=== PATIENT | male | born 1945 | race Caucasian/White ===

== ENCOUNTER 2018-05-14 13:00 | Emergency (ER) | payer OTHER ==
[2018-05-14] MEDS ORDERED: Aspirin 81 MG Tab.Chew PO ONE (13:12)
--- NOTE | 2018-05-14 13:30 | EDM.PDOC ---
ED HPI GENERAL MEDICAL PROBLEM - General Chief Complaint: Cardiovascular Problem Stated Complaint: LOW BLOOD PRESSURE,HIGH PULST Time Seen by Provider: 05/14/18 13:20 Source of Information: Reports: Patient History Limitations: Reports: No Limitations - History of Present Illness INITIAL COMMENTS - FREE TEXT/NARRATIVE: This 72 yo male patient reports to the ED due to dizziness, rapid heart rate, and low blood pressure. The patient reports when he finished with cardiac rehab , the patient reports feeling a little light headed. The patient reports he was also having some difficulties with his vision becoming blurry. The patient reports he fell to his right elbow prior to coming to the ED. The patient also reports intermittens "sharp" shots of pain through his chest. Onset: Today Duration: Constant Location: Reports: Upper Extremity, Right Quality: Reports: Other Severity: Moderate Improves with: Reports: None Worsens with: Reports: None Associated Symptoms: Reports: No Other Symptoms Bilateral Chest Pain Score (Numeric/FACES): 4 - Related Data Allergies Allergy/AdvReac Type Severity Reaction Status Date / Time lisinopril Allergy Cannot Verified 05/14/18 13:21 Remember Home Meds: Home Meds Ascorbic Acid 500 mg PO DAILY 01/17/17 [History] Erythromycin Base [Erythromycin 0.5% Ophth Oint] 1 applic EYEBOTH BEDTIME [History] Fish Oil/[place]-3 Fatty Acids [Fish Oil 1,000 MG] 2,000 gm PO DAILY 01/17/17 [ History] Furosemide 80 mg PO BID 01/17/17 [History] Gabapentin [Neurontin] 300 mg PO DAILY 01/17/17 [History] Gabapentin [Neurontin] 600 mg PO BID 01/17/17 [History] Losartan [Cozaar] 100 mg PO DAILY 01/17/17 [History] Multivitamin with Minerals [Multiple Vitamin] 1 tab PO DAILY 01/17/17 [History] NIFEdipine [Nifedipine ER] 90 mg PO DAILY 01/17/17 [History] Nitroglycerin 2.5 mg PO BID 01/17/17 [History] Simvastatin [Zocor] 40 mg PO BEDTIME 01/17/17 [History] Vitamin B Complex 1 cap PO DAILY 01/17/17 [History] Carboxymethylcellulose Sodium [Refresh Tears 0.5%] 2 drop EYEBOTH QID PRN [History] Insulin Glarg,Human.Rec.Analog [Lantus] 64 units INJECT DAILY 12/11/17 [History] Magnesium Oxide 420 mg PO BID 12/11/17 [History] glipiZIDE [Glipizide ER] 5 mg PO BIDMEALS 12/11/17 [History] Clopidogrel [Plavix] 75 mg PO DAILY 01/30/18 [History] Doxazosin Mesylate 4 mg PO BEDTIME 02/22/18 [History] metFORMIN HCl [Metformin HCl] 1,000 mg PO BID 02/22/18 [History] Fluticasone Propionate [Flonase] 2 sprays NASBOTH DAILY 03/27/18 [History] Potassium Chloride [Klor-Con M20] 20 meq PO TID 03/27/18 [History] Rivaroxaban [Xarelto] 15 mg PO DAILY 03/27/18 [History] Nitroglycerin [Nitrostat] 0.4 mg PO ASDIRECTED PRN 05/10/18 [History] Cholecalciferol (Vitamin D3) [Vitamin D3] 1,000 units PO DAILY 05/14/18 [History ] Metoprolol Succinate [Toprol XL 100mg] 100 mg PO BID 05/14/18 [History] Past Medical History Cardiovascular History: Reports: Afib, Aneurysm, Stents - Past Surgical History Cardiovascular Surgical History: Reports: Coronary Artery Stent Musculoskeletal Surgical History: Reports: Joint Replacement Other Musculoskeletal Surgeries/Procedures:: Left hip replacement.. Social & Family History - Tobacco Use Smoking Status *Q: Never Smoker - Recreational Drug Use Recreational Drug Use: No ED ROS GENERAL - Review of Systems Review Of Systems: ROS reveals no pertinent complaints other than HPI. ED EXAM, GENERAL - Physical Exam Exam: See Below Exam Limited By: No Limitations General Appearance: Alert, WD/WN, Moderate Distress Eye Exam: Bilateral Eye: EOMI, Normal Inspection, PERRL Ears: Normal External Exam, Normal Canal, Hearing Grossly Normal, Normal TMs, Other (bilateral hearing aids) Nose: Normal Inspection, Normal Mucosa, No Blood Throat/Mouth: Normal Inspection, Normal Lips, Normal Teeth, Normal Gums, Normal Oropharynx, Normal Voice, No Airway Compromise Head: Atraumatic, Normocephalic Neck: Normal Inspection, Supple, Non-Tender, Full Range of Motion Respiratory/Chest: No Respiratory Distress, Lungs Clear, Normal Breath Sounds, No Accessory Muscle Use, Chest Non-Tender Cardiovascular: No Gallop, No JVD, No Murmur, No Rub, Irregularly Irregular GI/Abdominal: Normal Bowel Sounds, Soft, Non-Tender, No Organomegaly, No Distention, No Abnormal Bruit, No Mass (Male) Exam: Deferred Rectal (Males) Exam: Deferred Back Exam: Normal Inspection, Full Range of Motion, NT Extremities: Pedal Edema Neurological: Alert, Oriented, CN II-XII Intact, Normal Cognition Psychiatric: Normal Affect, Normal Mood Skin Exam: Warm, Dry, Intact, Normal Color, No Rash Lymphatic: No Adenopathy Course - Vital Signs Last Recorded V/S: Last Vital Signs Temp Pulse 54 L 05/14/18 13:52 Resp 24 H 05/14/18 13:52 BP 85/43 L 05/14/18 13:52 Pulse Ox 96 05/14/18 13:52 - Orders/Labs/Meds Orders: Active Orders 24 hr Category Date Time Status EKG Documentation Completion [RC] URGENT Care 05/14/18 13:10 Active Labs: Laboratory Tests 05/14/18 05/14/18 05/14/18 Range/Units 13:21 13:21 13:21 WBC 7.5 (5.0-10.0) 10^3/uL RBC 4.22 L (4.6-6.2) 10^6/uL Hgb 12.2 L (14.0-18.0) g/dL Hct 37.8 L (40.0-54.0) % MCV 89.6 (80-100) fL MCH 28.9 (27.0-34.0) pg MCHC 32.3 L (33.0-35.0) g/dL Plt Count 132 L (150-450) 10^3/uL Neut % (Auto) 68.7 (42.2-75.2) % Lymph % (Auto) 19.3 L (20.5-50.1) % [place] % (Auto) 9.4 H (2-8) % Eos % (Auto) 2.3 (1.0-3.0) % Baso % (Auto) 0.3 (0.0-1.0) % PT 12.8 H (9.0-12.0) SEC INR 1.3 H (0.9-1.2) Sodium 139 (135-145) mmol/L Potassium 4.3 (3.6-5.0) mmol/L Chloride 103 (101-111) mmol/L Carbon Dioxide 23.0 (21.0-31.0) mmol/L Anion Gap 17.3 BUN 32 H (7-18) mg/dL Creatinine 1.4 H (0.6-1.3) mg/dL Est Cr Clr Drug Dosing 49.97 mL/min Estimated GFR (MDRD) 50 BUN/Creatinine Ratio 22.85 Glucose 148 H (74-105) mg/dL Calcium 8.8 (8.4-10.2) mg/dl Total Bilirubin 0.8 (0.2-1.0) mg/dL AST 33 (10-42) IU/L ALT 24 (10-60) IU/L Alkaline Phosphatase 60 (42-121) IU/L Troponin I < 0.02 (0.00-0.02) ng/ml Total Protein 6.8 (6.7-8.2) g/dl Albumin 3.8 (3.2-5.5) g/dl Globulin 3.0 Albumin/Globulin Ratio 1.27 Meds: Medications Discontinued Medications Generic Name Dose Route Start Last Admin Trade Name Freq PRN Reason Stop Dose Admin Aspirin 324 mg 05/14/18 13:12 05/14/18 13:27 Aspirin PO 05/14/18 13:13 324 mg ONETIME ONE Administration Departure - Departure Time of Disposition: 14:18 Disposition: Home, Self-Care 01 Condition: Fair Clinical Impression: Syncope, vasovagal Instructions: Near-Syncope, [id number] Forms: ED Department Discharge Care Plan Goals: The patient and family were advised of the examination, lab, EKG and x-ray results during the visit. The patient was encouraged to continue to monitor his symptoms. If the patient has any additional symptoms or concerns, the patient should either return to the emergency department or visit his primary care facility. - My Orders Last 24 Hours: My Active Orders 05/14/18 13:10 EKG Documentation Completion [RC] URGENT - Assessment/Plan Last 24 Hours: My Active Orders 05/14/18 13:10 EKG Documentation Completion [RC] URGENT
--- NOTE | 2018-05-14 13:42 | CR ---
Clinical history: 72-year-old male injured in fall. Interpretation: PA chest film confirms atheromatous calcifications arch of the aorta and disc disease/arthritis of the dorsal spine. Normal cardiac silhouette. No alveolar edema. No rib fracture, underlying lung contusion, atelectasis, pleural effusion or pneumothorax. No lung mass or hilar lymphadenopathy. No focal lobar pneumonia. CONCLUSION: No acute new cardiopulmonary abnormality since PA film 06 March 2018
[2018-05-14 13:46] LABS: ANION GAP 17.3; CHLORIDE,CL 103 mmol/L (101-111); SODIUM,NA 139 mmol/L (135-145)
--- NOTE | 2018-05-14 13:46 | CR ---
Clinical history: 72-year-old male injured in fall. Interpretation: 3 views right elbow confirm huge bone spur arising off the olecranon process, posteriorly, proximal right ulna and small bone spurs arising off the medial and lateral epicondyles distal right humerus. Homogeneous bone mineral density. No right elbow joint effusion, acute fracture or dislocation.
== END 2018-05-14 14:30 | disposition home or self-care (01) ==
LOC: DL.ED 13:00
DX: R55 Syncope and collapse (principal); I48.91 Unspecified atrial fibrillation; Z79.4 Long term (current) use of insulin; Z95.5 Presence of coronary angioplasty implant and graft; Z79.899 Other long term (current) drug therapy; Z88.8 Allergy status to other drugs, medicaments and biological substances
CPT/HCPCS: 36415; 71045; 73080; 80053; 84484; 85025; 85610; 93005; 99285; A9270

== ENCOUNTER 2018-07-03 12:50 | Emergency (ER) | payer OTHER ==
--- NOTE | 2018-07-03 13:32 | EDM.PDOC ---
ED HPI GENERAL MEDICAL PROBLEM - General Chief Complaint: Diabetic Complaint Stated Complaint: DIABETIC [id number] Time Seen by Provider: 07/03/18 13:15 Source of Information: Reports: Patient History Limitations: Reports: No Limitations - History of Present Illness INITIAL COMMENTS - FREE TEXT/NARRATIVE: This 72 yo male patient was brought [facility] the [facility] due to low blood sugar levels. The patient reports he had his normal toast and peanut butter for breakfast this morning and went to the [facility] for a Teleconference appointment. The patient reports that in the middle of the appointment, he started sweating, not feeling well and his blood sugar level dropped. The patient reports he had some juice from the [facility], but still was not feeling normal and was sent down to the ED for continued evaluation. The patient was eating a meal during my initial visit. The patient reports he was felling pretty normal at this time. The patient reports that he did not have any lunch today as he had been at the CT most of the morning. The patient reports no recent history of illness or injury. The patient was advised that the assessment would continue after he had a chance to eat. Onset: Today, Sudden Duration: Improving Location: Reports: Generalized Quality: Reports: Other Severity: Moderate Improves with: Reports: Eating Worsens with: Reports: None Context: Reports: Other Associated Symptoms: Reports: No Other Symptoms Chest Pain Score (Numeric/FACES): 2 Left Flank Pain Score (Numeric/FACES): 3 - Related Data Allergies Allergy/AdvReac Type Severity Reaction Status Date / Time lisinopril Allergy Cannot Verified 07/03/18 13:22 Remember Home Meds: Home Meds Ascorbic Acid 500 mg PO DAILY 01/17/17 [History] Erythromycin Base [Erythromycin 0.5% Ophth Oint] 1 applic EYEBOTH BEDTIME [History] Fish Oil/[place]-3 Fatty Acids [Fish Oil 1,000 MG] 2,000 gm PO DAILY 01/17/17 [ History] Furosemide 80 mg PO BID 01/17/17 [History] Gabapentin [Neurontin] 300 mg PO QAM 01/17/17 [History] Gabapentin [Neurontin] 600 mg PO BID 01/17/17 [History] Losartan [Cozaar] 100 mg PO DAILY 01/17/17 [History] Multivitamin with Minerals [Multiple Vitamin] 1 tab PO DAILY 01/17/17 [History] Simvastatin [Zocor] 40 mg PO BEDTIME 01/17/17 [History] Vitamin B Complex 1 cap PO DAILY 01/17/17 [History] Carboxymethylcellulose Sodium [Refresh Tears 0.5%] 2 drop EYEBOTH QID PRN [History] Insulin Glarg,Human.Rec.Analog [Lantus] 64 units INJECT DAILY 12/11/17 [History] Magnesium Oxide 420 mg PO BID 12/11/17 [History] Clopidogrel [Plavix] 75 mg PO DAILY 01/30/18 [History] Doxazosin Mesylate 4 mg PO BEDTIME 02/22/18 [History] metFORMIN HCl [Metformin HCl] 1,000 mg PO BID 02/22/18 [History] Fluticasone Propionate [Flonase] 2 sprays NASBOTH DAILY 03/27/18 [History] Potassium Chloride [Klor-Con M20] 20 meq PO TID 03/27/18 [History] Rivaroxaban [Xarelto] 15 mg PO DAILY 03/27/18 [History] Nitroglycerin [Nitrostat] 0.4 mg PO ASDIRECTED PRN 05/10/18 [History] Cholecalciferol (Vitamin D3) [Vitamin D3] 400 units PO DAILY 05/14/18 [History] Metoprolol Succinate [Toprol XL 100mg] 100 mg PO BID 05/14/18 [History] amLODIPine Besylate [Amlodipine Besylate] 5 mg PO DAILY 06/26/18 [History] Nitroglycerin 2.5 mg PO TID 06/27/18 [History] Artificial Saliva 07/03/18 [History] Clotrimazole [Clotrimazole 1%] 1 applic TOP BID PRN 07/03/18 [History] Difluprednate 0.05% 1 drop EYERT ASDIRECTED 07/03/18 [History] Sodium Fluoride 1.1% Toothpast 1 applic .XX DAILY 07/03/18 [History] Past Medical History Cardiovascular History: Reports: Afib, Aneurysm, Stents - Past Surgical History Cardiovascular Surgical History: Reports: Coronary Artery Stent Musculoskeletal Surgical History: Reports: Joint Replacement Other Musculoskeletal Surgeries/Procedures:: Left hip replacement.. ED ROS GENERAL - Review of Systems Review Of Systems: ROS reveals no pertinent complaints other than HPI. ED EXAM GENERAL NO PERIP PULSE - Physical Exam Exam: See Below Exam Limited By: No Limitations General Appearance: Alert, WD/WN, No Apparent Distress Eye Exam: Bilateral Eye: EOMI, Normal Inspection, PERRL Ears: Normal External Exam, Normal Canal, Hearing Grossly Normal, Normal TMs Nose: Normal Inspection, Normal Mucosa, No Blood Throat/Mouth: Normal Inspection, Normal Lips, Normal Teeth, Normal Gums, Normal Oropharynx, Normal Voice, No Airway Compromise Head: Atraumatic, Normocephalic Neck: Normal Inspection, Supple, Non-Tender, Full Range of Motion Respiratory/Chest: No Respiratory Distress, Lungs Clear, Normal Breath Sounds, No Accessory Muscle Use, Chest Non-Tender Cardiovascular: Normal Peripheral Pulses, Regular Rate, Rhythm, No Gallop, No JVD, No Rub, Systolic Murmur GI/Abdominal: Normal Bowel Sounds, Soft, Non-Tender, No Organomegaly, No Distention, No Abnormal Bruit, No Mass (Male) Exam: Deferred Rectal (Males) Exam: Deferred Back Exam: Normal Inspection, Full Range of Motion, NT Extremities: Normal Inspection, Normal Range of Motion, Non-Tender, Normal Capillary Refill, Pedal Edema Neurological: Alert, Oriented, CN II-XII Intact, Normal Cognition, Normal Gait, Normal Reflexes, No Motor/Sensory Deficits Psychiatric: Normal Affect, Normal Mood Lymphatic: No Adenopathy Course - Vital Signs Last Recorded V/S: Last Vital Signs Temp 36.2 C 07/03/18 13:01 Pulse 64 07/03/18 14:50 Resp 22 H 07/03/18 14:50 BP 119/63 07/03/18 14:50 Pulse Ox 97 07/03/18 14:50 - Orders/Labs/Meds Labs: Laboratory Tests 07/03/18 07/03/18 07/03/18 Range/Units 12:55 12:55 12:56 WBC 9.7 (5.0-10.0) 10^3/uL RBC 4.97 (4.6-6.2) 10^6/uL Hgb 14.3 D (14.0-18.0) g/dL Hct 44.9 (40.0-54.0) % MCV 90.3 (80-100) fL MCH 28.8 (27.0-34.0) pg MCHC 31.8 L (33.0-35.0) g/dL Plt Count 150 (150-450) 10^3/uL Neut % (Auto) 71.9 (42.2-75.2) % Lymph % (Auto) 14.0 L (20.5-50.1) % [place] % (Auto) 10.1 H (2-8) % Eos % (Auto) 3.5 H (1.0-3.0) % Baso % (Auto) 0.5 (0.0-1.0) % Sodium 142 (135-145) mmol/L Potassium 3.7 (3.6-5.0) mmol/L Chloride 104 (101-111) mmol/L Carbon Dioxide 27.0 (21.0-31.0) mmol/L Anion Gap 14.7 BUN 24 H (7-18) mg/dL Creatinine 1.1 (0.6-1.3) mg/dL Est Cr Clr Drug Dosing 63.60 mL/min Estimated GFR (MDRD) > 60 BUN/Creatinine Ratio 21.81 Glucose 69 L (74-105) mg/dL POC Glucose 63 L (83-110) mg/dl Calcium 9.0 (8.4-10.2) mg/dl Total Bilirubin 0.7 (0.2-1.0) mg/dL AST 28 (10-42) IU/L ALT 23 (10-60) IU/L Alkaline Phosphatase 70 (42-121) IU/L Total Protein 7.7 (6.7-8.2) g/dl Albumin 4.3 (3.2-5.5) g/dl Globulin 3.4 Albumin/Globulin Ratio 1.26 Urine Color (YELLOW) Urine Appearance (CLEAR) Urine pH (5.0-9.0) Ur Specific [place] (1.005-1.030) Urine Protein (NEGATIVE) Urine Glucose (UA) (NEGATIVE) Urine Ketones (NEGATIVE) Urine Occult Blood (NEGATIVE) Urine Nitrite (NEGATIVE) Urine Bilirubin (NEGATIVE) Urine Urobilinogen (0.2-1.0) mg/dL Ur Leukocyte Esterase (NEGATIVE) Urine RBC /HPF Urine WBC (0-5/HPF) /HPF Ur Epithelial Cells (NOT SEEN) /HPF Urine Bacteria (0-FEW/HPF) /HPF Urine Mucus (NOT SEEN) /LPF 07/03/18 07/03/18 Range/Units 13:42 14:36 WBC (5.0-10.0) 10^3/uL RBC (4.6-6.2) 10^6/uL Hgb (14.0-18.0) g/dL Hct (40.0-54.0) % MCV (80-100) fL MCH (27.0-34.0) pg MCHC (33.0-35.0) g/dL Plt Count (150-450) 10^3/uL Neut % (Auto) (42.2-75.2) % Lymph % (Auto) (20.5-50.1) % [place] % (Auto) (2-8) % Eos % (Auto) (1.0-3.0) % Baso % (Auto) (0.0-1.0) % Sodium (135-145) mmol/L Potassium (3.6-5.0) mmol/L Chloride (101-111) mmol/L Carbon Dioxide (21.0-31.0) mmol/L Anion Gap BUN (7-18) mg/dL Creatinine (0.6-1.3) mg/dL Est Cr Clr Drug Dosing mL/min Estimated GFR (MDRD) BUN/Creatinine Ratio Glucose (74-105) mg/dL POC Glucose 145 H (83-110) mg/dl Calcium (8.4-10.2) mg/dl Total Bilirubin (0.2-1.0) mg/dL AST (10-42) IU/L ALT (10-60) IU/L Alkaline Phosphatase (42-121) IU/L Total Protein (6.7-8.2) g/dl Albumin (3.2-5.5) g/dl Globulin Albumin/Globulin Ratio Urine Color Yellow (YELLOW) Urine Appearance Clear (CLEAR) Urine pH 5.0 (5.0-9.0) Ur Specific [place] 1.010 (1.005-1.030) Urine Protein Negative (NEGATIVE) Urine Glucose (UA) Negative (NEGATIVE) Urine Ketones Negative (NEGATIVE) Urine Occult Blood Negative (NEGATIVE) Urine Nitrite Negative (NEGATIVE) Urine Bilirubin Negative (NEGATIVE) Urine Urobilinogen 0.2 (0.2-1.0) mg/dL Ur Leukocyte Esterase Small H (NEGATIVE) Urine RBC Not seen /HPF Urine WBC 0-5 (0-5/HPF) /HPF Ur Epithelial Cells Few (NOT SEEN) /HPF Urine Bacteria Rare (0-FEW/HPF) /HPF Urine Mucus Few H (NOT SEEN) /LPF Departure - Departure Time of Disposition: 14:54 Disposition: Home, Self-Care 01 Condition: Fair Clinical Impression: Hypoglycemia - Discharge Information *PRESCRIPTION DRUG MONITORING PROGRAM REVIEWED*: Not Applicable *COPY OF PRESCRIPTION DRUG MONITORING REPORT IN PATIENT PEDRO LUIS: Not Applicable Instructions: Hypoglycemia, [id number] Referrals: Melinda Ramsey NP [Primary Care Provider] - Forms: ED Department Discharge Care Plan Goals: The patient and his were advised of the examination and lab results during the visit. The patient did eat a meal while in the ED and reports feeling well. The patient was encouraged to continue to take his medications as prescribed. If the patient has any additional symptoms or concerns, the patient should either return to the emergency department or visit his primary care facility.
[2018-07-03 13:50] LABS: ANION GAP 14.7; CHLORIDE,CL 104 mmol/L (101-111); SODIUM,NA 142 mmol/L (135-145)
== END 2018-07-03 15:08 | disposition home or self-care (01) ==
LOC: DL.ED 12:50
DX: E11.649 Type 2 diabetes mellitus with hypoglycemia without coma (principal); I48.91 Unspecified atrial fibrillation; Z88.8 Allergy status to other drugs, medicaments and biological substances; Z79.84 Long term (current) use of oral hypoglycemic drugs; Z79.899 Other long term (current) drug therapy; Z95.5 Presence of coronary angioplasty implant and graft; Z96.642 Presence of left artificial hip joint
CPT/HCPCS: 36415; 80053; 81001; 82962; 85025; 87086; 99283

== ENCOUNTER 2024-05-08 16:46 | Emergency (ER) | payer OTHER ==
[2024-05-08] MEDS ORDERED: Sodium Chloride 0.9% 10 ML Syringe FLUSH PRN (17:06)
[2024-05-08 17:26] LABS: BASOPHILS PERCENT AUTO 0.5 % (0.0-1.0); EOSINOPHILS PERCENT AUTO 0.5 % (1.0-3.0); HEMATOCRIT 41.4 % (40.0-54.0); HEMOGLOBIN 13.4 g/dL (14.0-18.0); LYMPHOCYTES PERCENT AUTO 16.4 % (20.5-50.1); MEAN CORPUSCULAR HEMOGLOBIN 30.9 pg (27.0-34.0); MEAN CORPUSCULAR HGB CONC 32.4 g/dL (33.0-35.0); MEAN CORPUSCULAR VOLUME 95.6 fL (80-100); NEUTROPHILS PERCENT AUTO 69.6 % (42.2-75.2); PLATELET COUNT,PLT 114 10^3/uL (150-450); RED BLOOD CELL COUNT 4.33 10^6/uL (4.6-6.2); WHITE BLOOD CELL COUNT,WBC 6.5 10^3/uL (5.0-10.0)
[2024-05-08 17:42] LABS: INR 1.1 (0.9-1.2); PROTHROMBIN TIME 11.2 SEC (9.0-12.0)
[2024-05-08 17:49] LABS: A/G RATIO 0.9; ALBUMIN 3.5 g/dL (3.4-5.0); ANION GAP 14.6 mEq/L (7-13); BILIRUBIN TOTAL 1.6 mg/dL (0.2-1.0); CALCIUM 9.1 mg/dL (8.5-10.1); CREATININE 1.14 mg/dL (0.70-1.30); EST CRCL DRUG DOSING (CG) 56.03 mL/min; POTASSIUM,K 3.6 mmol/L (3.5-5.1); PROTEIN TOTAL,TP 7.5 g/dL (6.4-8.2)
== END 2024-05-08 19:10 | disposition home or self-care (01) ==
LOC: DL.ED 16:46
DX: R42 Dizziness and giddiness (principal); R60.0 Localized edema; I10 Essential (primary) hypertension; E78.00 Pure hypercholesterolemia, unspecified; E11.9 Type 2 diabetes mellitus without complications; Z95.5 Presence of coronary angioplasty implant and graft; Z79.899 Other long term (current) drug therapy; Z79.4 Long term (current) use of insulin; Z79.84 Long term (current) use of oral hypoglycemic drugs; Z79.82 Long term (current) use of aspirin; Z79.2 Long term (current) use of antibiotics; Z88.8 Allergy status to other drugs, medicaments and biological substances
CPT/HCPCS: 70450; 71046; 80053; 83735; 83880; 84484; 85025; 85610; 87428-QW; 93005; 93010; 99284; 99285